=== PATIENT | female | born 1990 | race Caucasian/White ===

== ENCOUNTER 2018-08-04 22:01 | Emergency (ER) | payer OTHER ==
[2018-08-04] MEDS ORDERED: NA CHLORIDE 0.9% 1,000 ML ONE (22:47)
[2018-08-04 22:53] LABS: Urine Blood NEGATIVE (NEG); Urine Glucose NEGATIVE (NEG); Urine Protein NEGATIVE (NEG)
[2018-08-04 23:25] LABS: Absolute Lymphocytes (CBC) 2.6 K/uL (0.7-4.9); Absolute Monocytes 0.7 K/uL (0.1-1.3); Absolute Neutrophil 7.8 K/uL (1.8-8.0); Basophils % 0.5 % (0-1.3); Eosinophils % 1.8 % (0-4.4); Hematocrit 33.3 % (36.0-45.0); Lymphocytes % 23.1 % (15.3-44.8); MCH 21.2 pg (27.0-35.0); MCV 66.1 fL (80-100); MPV 8.5 fL (7.6-11.3); RBC Red Blood Cell Count 5.03 M/uL (3.86-4.86)
[2018-08-05 00:09] LABS: BUN Blood Urea Nitrogen 6 mg/dL (7-18); Bicarbonate 24 mmol/L (21-32); Glucose Level 78 mg/dL (74-106); HCG, Quantitative 28283 mIU/mL (1-3); Potassium 3.6 mmol/L (3.5-5.1); Sodium Level 140 mmol/L (136-145)
--- NOTE | 2018-08-05 01:34 | EDPHYS ---
Physician Documentation [facility] Name: Tatiana Huff Age: 27 yrs Sex: Female : 1990 Arrival Date: 08/04/2018 Time: 22:06 Bed 24 Private MD: Sergey Hanson B ED Physician Mike Amezcua HPI: 08/04 22:20 This 27 yrs old Female presents to ER via Ambulatory with complaints of Ear cp Pain, Abdominal Cramping. 22:20 The patient presents with pain, that is acute, swelling, tenderness. Onset: The cp symptoms/episode began/occurred gradually. The patient presents to the emergency department with abdominal pain, of the suprapubic area, described as crampy. course: care: none, Leakage of Fluid: none appreciated, Ultrasound: the patient has not had an ultrasound. Associated signs and symptoms: Pertinent negatives: chest pain, dysuria, fever, ruptured membranes, vaginal bleeding, vaginal discharge, vomiting. Patient reports she has been using prescribed ear drops today for ear pain. 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 - Social history:: Smoking status: Patient/guardian denies using tobacco. - Ebola Screening: : Patient denies travel to an Ebola-affected area in the 21 days before illness onset. ROS: 22:30 Constitutional: Negative for body aches, chills, fever, poor PO intake. cp 22:30 Eyes: Negative for injury, pain, redness, and discharge. cp 22:30 ENT: Positive for ear pain, Negative for drainage from ear(s), difficulty swallowing, difficulty handling secretions. 22:30 Respiratory: Negative for cough, shortness of breath, wheezing. 22:30 Abdomen/GI: Positive for abdominal cramps. 22:30 Skin: Negative for cellulitis, rash. 22:30 Neuro: Negative for altered mental status, dizziness, headache, syncope, near syncope, weakness. 22:30 All other systems are negative. Exam: 22:35 Constitutional: The patient appears in no acute distress, alert, awake, non-toxic, well cp developed, well nourished. 22:35 Head/Face: Normocephalic, atraumatic. cp 22:35 Eyes: Periorbital structures: appear normal, Conjunctiva: normal, no exudate, no injection, Sclera: no appreciated abnormality, Lids and lashes: appear normal, bilaterally. 22:35 ENT: External ear(s): pain with movement, of the pinna of right ear, Ear canal(s): cerumen impaction, is not appreciated, purulent discharge, is not appreciated, swelling, that is moderate, of the right canal, TM's: not visable, Examination of the other ear shows no obvious abnormality, Nose: is normal, Mouth: Lips: moist, Oral mucosa: pink and intact, moist, Posterior pharynx: is normal, airway is patent, no erythema, no exudate, Voice: is normal. 22:35 Neck: ROM/movement: is normal, is supple, without pain, no range of motions limitations, no meningismus, no nuchal rigidity, Lymph nodes: no appreciated lymphadenopathy. 22:35 Chest/axilla: Inspection: normal, Palpation: is normal, no crepitus, no tenderness. 22:35 Cardiovascular: Rate: tachycardic, Rhythm: regular. 22:35 Respiratory: the patient does not display signs of respiratory distress, Respirations: normal, no use of accessory muscles, no retractions, no splinting, no tachypnea, labored breathing, is not present, Breath sounds: are clear throughout, no decreased breath sounds, no stridor, no wheezing. 22:35 Abdomen/GI: Inspection: abdomen appears normal, Bowel sounds: active, all quadrants, Palpation: soft, in all quadrants, mild abdominal tenderness, in the suprapubic area, rebound tenderness, is not appreciated, voluntary guarding, is not appreciated, involuntary guarding, is not appreciated. 22:35 Back: CVA tenderness, is absent. 22:35 Skin: cellulitis, is not appreciated, no rash present. Vital Signs: 22:12 BP 138 / 87; Pulse 105; Resp 20; Temp 98.1; Pulse Ox 99% on R/A; Weight 113.4 kg (R); aj1 Height 5 ft. 3 in. (160.02 cm) (R); Pain 9/10; 23:23 BP 131 / 54; Pulse 83; Resp 16; Pulse Ox 99% on R/A; aa1 08/05 00:18 BP 108 / 49; Pulse 90; Resp 18; Pulse Ox 100% on R/A; aa1 01:10 BP 120 / 60; Pulse 91; Resp 16; Pulse Ox 98% on R/A; aa1 08/04 22:12 Body Mass Index 44.29 (113.40 kg, 160.02 cm) aj1 MDM: 08/04 22:15 Patient medically screened. cp 23:00 Differential diagnosis: otitis media, otitis externa, ruptured TM, foreign body, acute cp otalgia, cerumen impaction, STD, ectopic . 08/05 01:32 Data reviewed: vital signs, nurses notes, lab test result(s), radiologic studies, cp ultrasound. 01:32 Counseling: I had a detailed discussion with the patient and/or guardian regarding: the cp historical points, exam findings, and any diagnostic results supporting the discharge/admit diagnosis, lab results, radiology results, the need for outpatient follow up, an OB/Gyne specialist, to return to the emergency department if symptoms worsen or persist or if there are any questions or concerns that arise at home. 01:32 ED course: VSS. Ear wick placed in right ear canal. Will discharge to home for cp continued monitoring. 08/04 22:30 Order name: Quantitative Hcg; Complete Time: 00:28 08/04 22:30 Order name: Abo/rh Typing; Complete Time: 00:28 08/04 22:30 Order name: Basic Metabolic Panel; Complete Time: 00:28 08/05 01:23 Interpretation: Normal except: CL 108; BUN 6. cp 08/04 22:30 Order name: CBC with Diff; Complete Time: 23:50 08/04 23:50 Interpretation: Normal except: WBC 11.4; RBC 5.03; HGB 10.7; HCT 33.3; MCV 66.1; MCH cp 21.2; RDW 16.7. 08/04 22:43 Order name: Urine Dipstick--Ancillary (enter results) [facility] 08/04 22:43 Order name: Urine --Ancillary (enter results) [facility] 08/04 22:15 Order name: Urine Dipstick-Ancillary (obtain specimen); Complete Time: 22:26 cp 08/04 22:15 Order name: Urine Test (obtain specimen); Complete Time: 22:26 cp 08/04 22:30 Order name: IV Saline Lock; Complete Time: 23:05 cp 08/04 22:30 Order name: Labs collected and sent; Complete Time: 23:05 cp 08/04 22:30 Order name: NPO; Complete Time: 22:40 cp 08/04 22:30 Order name: US Transvaginal Ob cp Administered Medications: 08/04 23:04 Drug: NS 0.9% 1000 ml Route: IV; Rate: 1 bolus; Site: right antecubital; aa1 08/05 00:00 Follow up: IV Status: Completed infusion aa1 01:34 Not Given (Patient Refused): Tylenol 1000 mg PO once aa1 Disposition: 08/05/18 01:34 Discharged to Home. Impression: Lower abdominal pain, unspecified, related conditions, unspecified, first trimester, Otitis externa in other diseases classified elsewhere, left ear. - Condition is Stable. - Discharge Instructions: Abdominal Pain During , Ear Drops, Adult, Otitis Externa. - Prescriptions for Augmentin 875- 125 mg Oral Tablet - take 1 tablet by ORAL route every 12 hours for 10 days; 20 tablet. Cortisporin- TC 3.3-3-10-0.5 mg/mL Otic Drops, Suspension - instill 4 drops by OTIC route every 6 hours for 10 days; 1 bottle. Vitamin 27- 0.8 mg Oral Tablet - take 1 tablet by ORAL route once daily; 60 tablet. - Medication Reconciliation Form, Thank You Letter, Antibiotic Education, Prescription Opioid Use form. - Follow up: Juanita Vieira MD; When: 2 - 3 days; Reason: left otitis externa. - Problem is new. - Symptoms have improved. Addendum: 08/06/2018 06:38 Co-signature as Attending Physician, Mike Amezcua MD I agree with the assessment and c medina plan of care. Signatures: Dispatcher [employer] EDChrista Ovalles RN RN aj1 Oralia Gan RN RN aa1 Mike Amezcua MD MD cha Page, Corey PA PA cp Corrections: (The following items were deleted from the chart) 09/28 01:47 01:34 08/05/2018 01:34 Discharged to Home. Impression: Lower abdominal pain, aa1 unspecified; related conditions, unspecified, first trimester; Otitis externa in other diseases classified elsewhere, left ear. Condition is Stable. Forms are Medication Reconciliation Form, Thank You Letter, Antibiotic Education, Prescription Opioid Use. Follow up: Juanita Vieira; When: 2 - 3 days; Reason: left otitis externa. Problem is new. Symptoms have improved. cp 23:20 23:17 The patient presents with pain, that is acute, swelling, tenderness, cp cp 23:20 23:17 The complaints affect the right ear, cp cp 23:20 23:17 Onset: The symptoms/episode began/occurred gradually, cp cp 23:20 23:17 Associated signs and symptoms: Pertinent negatives: cough, fever, sore throat, cp cp
--- NOTE | 2018-08-05 01:34 | ER ---
Nurse's Notes [facility] Name: Tatiana Huff Age: 27 yrs Sex: Female : 1990 Arrival Date: 08/04/2018 Time: 22:06 Bed 24 Private MD: Sergey Hanson B Diagnosis: Lower abdominal pain, unspecified; related conditions, unspecified, first trimester;Otitis externa in other diseases classified elsewhere, left ear Presentation: 08/04 22:11 Presenting complaint: Patient states: "I have an ear infection that is now super bad. I aj1 have ear drop, but its so swollen that they won't even go in. And the pain goes into my jaw line, and at the same time I've started to get a bunch of cramps and I'm about 7 to 8 weeks ." Denies vaginal bleeding or discharge. Transition of care: patient was not received from another setting of care. Onset of symptoms was July 2018. Risk Assessment: Do you want to hurt yourself or someone else? Patient reports no desire to harm self or others. Initial Sepsis Screen: Does the patient meet any 2 criteria? HR > 90 bpm. No. Patient's initial sepsis screen is negative. Does the patient have a suspected source of infection? No. Patient's initial sepsis screen is negative. Care prior to arrival: None. 22:11 Method Of Arrival: Ambulatory aj1 22:11 Acuity: GALE 3 aj1 Triage Assessment: 22:12 General: Appears in no apparent distress. comfortable, Behavior is calm, cooperative, aj1 appropriate for age. Pain: Complains of pain in right ear Pain currently is 9 out of 10 on a pain scale. EENT: Reports ear pain. GI: Reports cramping. : Denies vaginal bleeding. 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 - Social history:: Smoking status: Patient/guardian denies using tobacco. - Ebola Screening: : Patient denies travel to an Ebola-affected area in the 21 days before illness onset. Screenin:30 Abuse screen: Denies threats or abuse. Denies injuries from another. Nutritional aa1 screening: No deficits noted. Tuberculosis screening: No symptoms or risk factors identified. Fall Risk None identified. Assessment: 22:30 General: Appears in no apparent distress. comfortable, Behavior is calm, cooperative, aa1 appropriate for age. Pain: Complains of pain in right ear. Neuro: Level of Consciousness is awake, alert, obeys commands, Oriented to person, place, time, situation, Moves all extremities. Full function. Respiratory: Airway is patent Respiratory effort is even, unlabored, Respiratory pattern is regular, symmetrical. GI: No signs and/or symptoms were reported involving the gastrointestinal system. : Reports cramping, Denies vaginal bleeding. EENT: Reports pain in right ear. Derm: Skin is intact, is healthy with good turgor, Skin is pink, warm \\T\\ dry. 08/05 01:10 Reassessment: Patient appears in no apparent distress at this time. Patient and/or aa1 family updated on plan of care and expected duration. Pain level reassessed. Patient is alert, oriented x 3, equal unlabored respirations, skin warm/dry/pink. Awaiting provider reassessment. 01:45 Reassessment: Patient appears in no apparent distress at this time. Patient is alert, aa1 oriented x 3, equal unlabored respirations, skin warm/dry/pink. Discussed d/c \\T\\ f/u instructions with pt \\T\\ significant other; denies questions or concerns Patient states feeling better. Vital Signs: 08/04 22:12 BP 138 / 87; Pulse 105; Resp 20; Temp 98.1; Pulse Ox 99% on R/A; Weight 113.4 kg (R); aj1 Height 5 ft. 3 in. (160.02 cm) (R); Pain 9/10; 23:23 BP 131 / 54; Pulse 83; Resp 16; Pulse Ox 99% on R/A; aa1 08/05 00:18 BP 108 / 49; Pulse 90; Resp 18; Pulse Ox 100% on R/A; aa1 01:10 BP 120 / 60; Pulse 91; Resp 16; Pulse Ox 98% on R/A; aa1 08/04 22:12 Body Mass Index 44.29 (113.40 kg, 160.02 cm) aj1 ED Course: 08/04 22:06 Patient arrived in ED. es 22:07 Sergey Hanson MD is Private Physician. es 22:12 Triage completed. aj1 22:12 Arm band placed on. aj1 22:15 Mike Krishnamurthy PA is PHCP. cp 22:15 Mike Amezcua MD is Attending Physician. cp 22:16 Oralia Gan, RN is Primary Nurse. aa1 22:30 Patient has correct armband on for positive identification. Bed in low position. Call aa1 light in reach. Pulse ox on. NIBP on. 22:56 US Transvaginal Ob In Process Unspecified. EDMS 23:05 Inserted saline lock: 20 gauge in right antecubital area, using aseptic technique. nh Blood collected. 08/05 01:33 Juanita Vieira MD is Referral Physician. cp 01:46 No provider procedures requiring assistance completed. IV discontinued, intact, aa1 bleeding controlled, No redness/swelling at site. Pressure dressing applied. Administered Medications: 08/04 23:04 Drug: NS 0.9% 1000 ml Route: IV; Rate: 1 bolus; Site: right antecubital; aa1 08/05 00:00 Follow up: IV Status: Completed infusion aa1 01:34 Not Given (Patient Refused): Tylenol 1000 mg PO once aa1 Outcome: 01:34 Discharge ordered by . cp 01:46 Discharged to home ambulatory, with significant other. aa1 01:46 Condition: good 01:46 Discharge instructions given to patient, significant other, Instructed on discharge instructions, follow up and referral plans. medication usage, Demonstrated understanding of instructions, follow-up care, medications, Prescriptions given X 3. 01:47 Patient left the ED. aa1 Signatures: Dispatcher [employer] Christa Franks RN RN aj1 Oralia Gan, ALISTAIR RN aa1 Katarina Richards Corey, PA PA Lucinda Valdes nh
[2018-08-05 02:00] VITALS: TEMP 98.1
[2018-08-05 02:03] VITALS: BP 120/60; O2SAT 98
--- NOTE | 2018-08-05 09:26 | RAD REPORT ---
EXAM DESCRIPTION: US - Transvaginal OB - 08/04/2018 10:56 pm CLINICAL HISTORY: Abdominal pain, abdominal cramping, Preliminary findings provided at the time of the study. COMPARISON: None. FINDINGS: A small 15 millimeter left ovarian cyst is present. There is an additional 2.5 centimeter exophytic or paraovarian cyst on the left. No suspicious left ovarian or adnexal finding. No right ov nate or right adnexal solid or cystic mass. Doppler evaluation shows normal blood flow within the bi lateral ovarian tissue. An intrauterine gestation is identified. Yolk sac is seen. Heart rate is 136 BPM. [place]-rump length c orresponds to a 6 week 1 day age. No intrauterine mass or hematoma identifiable. Myometrium is somewh at difficult to assess due to heterogeneity and diminished visualization of the serosal margin. Myome trial abnormality is not suspected. No free fluid in the cul-de-sac. IMPRESSION: Single 6 week 1 day IUP is seen with heart rate 136 BPM. Left ovarian 15 millimeter and left exophytic ovarian or paraovarian 25 millimeter cyst.
== END 2018-08-05 01:47 | disposition home or self-care (01) ==
LOC: ER 22:01
DX: H60.92 Unspecified otitis externa, left ear (principal); R10.30 Lower abdominal pain, unspecified; Z91.040 Latex allergy status; Z3A.01 Less than 8 weeks gestation of pregnancy
CPT/HCPCS: 36415; 76817; 80048; 81003; 81025; 84702; 85025; 86900; 86901; 96360; 99284; J7030